=== PATIENT | female | born 1975 | race African-American/Black ===

== ENCOUNTER 2017-06-26 12:55 | Emergency (ER) | payer MEDICAID ==
[~2017-06-26] VITALS: Ht 162.6 cm; Wt 94.8 kg
[2017-06-26 14:00] LABS: MICROSCOPIC INDICATED
[2017-06-26 14:01] LABS: CULTURE INDICATED? YES
[2017-06-26 14:03] LABS: HCG UR SG 1.024 (1.003-1.030)
[2017-06-26 14:37] LABS: CLUE CELLS NONE SEEN (NONE SEEN)
[2017-06-26 14:38] LABS: WET PREP WBCS MANY (FEW)
[2017-06-26] MEDS ORDERED: AZITHROMYCIN 500 MG TABLET ONE (14:53)
[2017-06-26] MEDS ORDERED: CEFTRIAXONE 1,000 MG ONE (14:54)
[2017-06-26] MEDS ORDERED: AZITHROMYCIN 500 MG TABLET PO ONE (15:00)
[2017-06-26] MEDS ORDERED: CEFTRIAXONE 1,000 MG IM ONE (15:00)
[2017-06-26 15:25] VITALS: BP 133/80
== END 2017-06-26 15:27 | disposition home or self-care (01) ==
LOC: ED 15:21
DX: N89.8 Other specified noninflammatory disorders of vagina (principal); A59.03 Trichomonal cystitis and urethritis; N30.00 Acute cystitis without hematuria; J45.909 Unspecified asthma, uncomplicated
CPT/HCPCS: 81001; 81025; 87086; 87147; 87210; 87491; 87591; 87808; 93005; 96372; 99285; J0696